=== PATIENT | female | born 1970 | race Caucasian/White ===

== ENCOUNTER 2018-02-13 15:20 | Emergency (ER) | payer OTHER, MEDICARE, SELFPAY ==
[2018-02-13 15:21] VITALS: BP 128/91; PULSE 79; RESP 16; TEMP 36.6; O2SAT 97; BMI 33.6
--- NOTE | 2018-02-13 15:37 | ED.VISSUMM ---
- ER Visit Summary Date of Service: 02/13/18 Chief Complaint: Abdominal bloating History of Present Illness: The patient is a 47 F presenting with abdominal bloating for 1 week. She states this has progressively worsened. She complains of diffuse abdominal pain. She has had diarrhea. She denies nausea or vomiting. Denies fever. Denies urinary complaints. She has history of a kidney transplant one year ago at [facility] in [place]. Physical Examination: Vitals are stable. Patient is afebrile. Alert no acute distress. HEENT exam is unremarkable. Neck is supple. Lungs are clear and equal bilaterally. Heart is regular rate and rhythm. Abdomen is soft distention, mild diffuse tenderness with no rebound or guarding. Extremities are unremarkable. Skin is warm and dry. No focal neurologic deficit. Remainder of exam is unremarkable. Emergency Department Course and Treatment: Patient is given morphine, Zofran. CBC shows a white count of 0.7, hemoglobin 11.0, platelets 79. Chemistries show creatinine 1.13. Total bili 2.6, direct bili 1.98, alk phos 183, AST 103, lipase is normal. Urinalysis unremarkable. CT abdomen pelvis with p.o. only contrast shows findings consistent with nonspecific enteritis. Distended gallbladder without calcified stones possibly physiologic. If concern for gallbladder disease ultrasound recommended Atrophic [place] kidneys with nonspecific mesenteric edema and moderate ascites possibly due to renal failure. Nonspecific splenomegaly. Discussed with Dr. Clayton who recommends transfer to tertiary care center. Discussed with [facility]. They request blood cultures and antibiotics to be held at this time. She will be transferred to [facility]. Disposition: Transfer to [facility] Impression: Pancytopenia, elevated liver enzymes, nonspecific enteritis, mesenteric edema, history of renal transplant This note was generated with [employer] dictation software. It may contain incorrect words, spelling, and punctuation that were not noted in review of the chart prior to signing ED Disposition - Plan for ED Patient: Chief Complaint: Abd Pain Referrals: [facility],Out of [NON-STAFF] -
--- NOTE | 2018-02-13 15:41 | ED.DCSUM_ITS ---
- ER Visit Summary Date of Service: 02/13/18 Chief Complaint: Abdominal bloating History of Present Illness: The patient is a 47 F presenting with abdominal bloating for 1 week. She states this has progressively worsened. She complains of diffuse abdominal pain. She has had diarrhea. She denies nausea or vomiting. Denies fever. Denies urinary complaints. She has history of a kidney transplant one year ago at [facility] in [place]. Physical Examination: Vitals are stable. Patient is afebrile. Alert no acute distress. HEENT exam is unremarkable. Neck is supple. Lungs are clear and equal bilaterally. Heart is regular rate and rhythm. Abdomen is soft distention, mild diffuse tenderness with no rebound or guarding. Extremities are unremarkable. Skin is warm and dry. No focal neurologic deficit. Remainder of exam is unremarkable. Emergency Department Course and Treatment: Patient is given morphine, Zofran. CBC shows a white count of 0.7, hemoglobin 11.0, platelets 79. Chemistries show creatinine 1.13. Total bili 2.6, direct bili 1.98, alk phos 183, AST 103, lipase is normal. Urinalysis unremarkable. CT abdomen pelvis with p.o. only contrast shows findings consistent with nonspecific enteritis. Distended gallbladder without calcified stones possibly physiologic. If concern for gallbladder disease ultrasound recommended Atrophic [place] kidneys with nonspecific mesenteric edema and moderate ascites possibly due to renal failure. Nonspecific splenomegaly. Discussed with Dr. Clayton who recommends transfer to tertiary care center. Discussed with [facility]. They request blood cultures and antibiotics to be held at this time. She will be transferred to [facility]. Disposition: Transfer to [facility] Impression: Pancytopenia, elevated liver enzymes, nonspecific enteritis, mesenteric edema, history of renal transplant This note was generated with [employer] dictation software. It may contain incorrect words, spelling, and punctuation that were not noted in review of the chart prior to signing ED Disposition - Plan for ED Patient: Chief Complaint: Abd Pain Referrals: [facility],Out of [NON-STAFF] -
--- NOTE | 2018-02-13 15:41 | CT_ITS ---
STUDY: CT ABDOMEN AND PELVIS WITH CONTRAST REASON FOR EXAM: Female, 47 years old. Abdominal pain and swelling RADIATION DOSAGE (If Supplied By Facility): CTDIvol = ( 14.41 ) mGy, DLP = ( 759.64 ) mGycm TECHNIQUE: Transaxial images were obtained from the dome of the diaphragm to the symphysis pubis without oral contrast. 15 ml of Gastrografin contrast was administered. Sagittal and coronal images were reconstructed. Individualized dose optimization techniques were used for this CT. COMPARISON: None. FINDINGS: There is minor interstitial thickening in the lower lobes. Heart is mildly enlarged. Bilateral breast prostheses are present Moderate-sized lateral hernia is noted. There is mild prominence of the liver particularly the left lobe. Attenuation is homogeneous. There is no mass or bile duct dilatation. Nonspecific gallbladder distention.. Spleen is enlarged and homogeneous attenuation. Normal pancreas. There is ascites in right upper quadrant extending into the right paracolic gutter and layering within the pelvis. There is mild nonspecific mesenteric edema. Normal bilateral adrenal glands. The [place] kidneys are atrophic without evidence for hydronephrosis or mass lesion. Normal visualized stomach. There is no evidence for small bowel obstruction. There are several loops of proximal small bowel which demonstrate relative thickening of the servin possibly due to nonspecific enteritis Normal colon. The appendix is visualized and appears normal. Atherosclerotic changes of the aorta without evidence for aneurysm.. Normal inferior vena cava. Normal retroperitoneum. Normal urinary bladder. Uterus not visualized status post hysterectomy Renal transplant is noted in the right iliac fossa without evidence for obstruction or definitive evidence for mass. Normal abdominal wall. Normal osseous structures. CT/Abdomen/Pel W ORAL Cont Only IMPRESSION: Findings consistent with nonspecific enteritis. Distended gallbladder without calcified stones possibly physiologic. If concern for gallbladder disease ultrasound recommended Atrophic [place] kidneys with nonspecific mesenteric edema and moderate ascites possibly due to renal failure. Nonspecific splenomegaly Electronically Signed: Anoop Christopher MD at 18:09 EDT , Service support ,
[2018-02-13] MEDS: Ondansetron 4 MG/2 ML Vial IV (15:56)
[2018-02-13] MEDS: Morphine 4 MG/ML Syringe IV (15:56)
[2018-02-13 16:09] LABS: Absolute Lymphocyte Count 0.29 X10^3/ul (0.83-4.51); Absolute Neutrophil Count 0.2 X10^3/uL (2.0-7.7); Basophil# 0.01 X10^3/uL; Basophil% 1.5 % (0-1); Eosinophil# 0.01 X10^3/uL; Eosinophils% 1.5 % (0-5); Hematocrit 33.2 % (37-47); Lymphocyte # 0.29 X10^3/ul (4.0); Lymphocyte % 43.3 % (19-41); Mean Corp Hgb Conc 33.1 g/gl (32-36); Mean Corpuscular Hgb 32.5 pg (27.0-32.0); Mean Corpuscular Volume 98.2 fL (81-99); Monocyte# 0.17 X10^3/uL; Monocyte% 25.4 % (0-10); Neutrophil # 0.18 X10^3/uL (2.7-7.7); Neutrophil % 26.8 % (47-70); Platelet Count 79 K/mm3 (150-450); RBC Distribution Width CV 19.9 % (11.6-14.6); RBC Distribution Width SD 70.9 fl (35.1-43.9); Red Blood Count 3.38 M/mm3 (4.2-5.4)
[2018-02-13 16:11] LABS: AST(SGOT) 103 U/L (15-37); Alanine Aminotransfer ALT/SGPT 49 U/L (13-56); Albumin, Serum 2.5 g/dL (3.2-5.0); Alkaline Phosphatase 183 U/L (45-117); Anion Gap 5 (5-15); BUN 15 mg/dL (7-18); BUN/Creat Ratio 13.3 RATIO (10-20); Bilirubin, Direct 1.98 mg/dL (0.00-0.30); Calcium,Total 8.1 mg/dL (8.5-10.1); Chloride 110 mmol/L (98-107); Creatinine, Serum 1.13 mg/dL (0.55-1.02); Differential Indicated SCAN CRITERIA MET; EST Glomerular Filtration Rate 55 mL/min (>60); Est Glom Filt Rate - Afr Amer 67 mL/min (>60); Estimated Creatinine Clearance 52.01 ml/min; Globulin 3.2 g/dL (2.2-4.2); Glucose 112 mg/dL (74-106); Lipase 119 U/L (73-393); POSITIVE COUNT YES; POSITIVE DIFFERENTIAL YES; POSITIVE MORPHOLOGY YES; Protein, Total 5.7 g/dL (6.4-8.2); Sodium Level 140 mmol/L (136-145)
[2018-02-13 16:12] LABS: White Blood Count 0.7 K/mm3 (4.4-11.0)
[2018-02-13 16:51] LABS: Differential Comment SCANNED
[2018-02-13 16:52] LABS: Bacteria 0 SEEN /hpf (None Seen); Mucous, Urine 0 SEEN /hpf (<or=2+); Red Blood Cells-Urine 0 SEEN /hpf (0-5); White Blood Cells 0 SEEN /hpf (0-5)
[2018-02-13 17:37] LABS: Color, Urine Yellow (Yellow); Glucose, Dipstick Normal (Normal); Ketone-Dipstick Negative (Negative); Leukocyte Esterase-Dipstick Negative /ul (Negative); Nitrite-Dipstick Negative (Negative); Occult Blood-Urine Negative /ul (Negative); Protein-Dipstick Negative (Negative); Urine Bilirubin Dipstick Negative (Negative); Urine Clarity Clear (Clear); Urine Urobilinogen 1 mg/dl (Normal)
[2018-02-13 18:26] LABS: Squamous Epithelial Cells - UA 0-5 SEEN /hpf (5-10)
[2018-02-13 18:36] VITALS: BP 138/88; PULSE 72; RESP 18; O2SAT 96
[2018-02-13 19:48] VITALS: BP 128/74; PULSE 61; RESP 18; O2SAT 100
--- NOTE | 2018-02-13 20:35 | ED.RN ---
FAXED FACE SHEET TO [facility]
[2018-02-13 21:54] VITALS: BP 122/89; PULSE 60; RESP 18; O2SAT 98
[2018-02-14 09:24] LABS: Pathologist Review Reviewed
== END 2018-02-13 22:19 | disposition short-term general hospital (02) ==
LOC: ED 16:04
PROVIDERS: Emergency Provider Emergency Medicine
DX: D61.818 Other pancytopenia (principal); R94.5 Abnormal results of liver function studies; K52.9 Noninfective gastroenteritis and colitis, unspecified; R60.0 Localized edema; K21.9 Gastro-esophageal reflux disease without esophagitis; M32.9 Systemic lupus erythematosus, unspecified; B19.20 Unspecified viral hepatitis C without hepatic coma; Z94.0 Kidney transplant status; Z79.899 Other long term (current) drug therapy; Z72.0 Tobacco use
CPT/HCPCS: 74176; 80048; 80076; 81001; 83690; 85025; 87040; 96374; 96375; 99285; A4216; J2405